=== PATIENT | female | born 1990 | race Caucasian/White ===

== ENCOUNTER 2019-12-05 18:51 | Emergency (ER) | payer MEDICAID ==
--- NOTE | 2019-12-05 20:18 | ER Document Report ---
ED Medical Screen (RME) - General Chief Complaint: Arm Pain Stated Complaint: LEFT ARM PAIN,CHEST PAIN,HEADACHE Time Seen by Provider: 12/05/19 20:09 Notes: HPI: 29-year-old female who is otherwise healthy presenting for 2 primary complaints. Patient states 3 days ago she developed an intermittent sharp chest discomfort in the left chest, occasional shortness of breath occasional radiation into the left arm and shoulder region. No change with exertional activities no history of similar discomfort. No fever cough or recent illness. Patient is on Depo-Provera. Patient also complaining of 2 days of an intermittent left sided headache. Patient states the left side of her face feels "heavy" and that she occasionally has some blurred vision in the left eye. No speech difficulty. No visual loss. No weakness numbness or tingling in the left arm or left leg. No gait difficulty I have greeted and performed a rapid initial assessment of this patient. A comprehensive ED assessment and evaluation of the patient, analysis of test results and completion of the medical decision making process will be conducted by additional ED providers PHYSICAL EXAMINATION: GENERAL: Well-appearing, well-nourished and in no acute distress. HEAD: Atraumatic, normocephalic. EYES: sclera anicteric, conjunctiva are normal. ENT: Moist mucous membranes. NECK: Normal range of motion LUNGS: Normal work of breathing, clear to auscultation HEART: 2+ radial pulses bilaterally, regular rate and rhythm ABD: limited by positioning for exam in triage. EXTREMITIES: no pitting or edema. No cyanosis. NEUROLOGICAL: No focal neurological deficits. Moves all extremities spontaneously and on command. No facial droop, speech is clear. Motor and sensory exam facial equal bilaterally. VAN negative. Strength equal 5/5 bilateral upper and lower extremities sensation intact and equal bilateral upper and lower extremities PSYCH: Normal mood, normal affect. SKIN: Warm, Dry, normal turgor, no rashes or lesions noted. TRAVEL OUTSIDE OF THE [place] IN LAST 30 DAYS: No - Related Data Allergies/Adverse Reactions: No Known Allergies Allergy (Unverified 12/05/19 20:08) Past Medical History - Social History Frequency of alcohol use: Occasional Drug Abuse: None Physical Exam - Vital signs Vitals: Temp Pulse Resp BP Pulse Ox 98.3 F 76 18 116/77 97 12/05/19 19:23 12/05/19 19:23 12/05/19 19:23 12/05/19 19:23 12/05/19 19:23 Course - Vital Signs Vital signs: Temp Pulse Resp BP Pulse Ox 98.3 F 76 18 116/77 97 12/05/19 19:23 12/05/19 19:23 12/05/19 19:23 12/05/19 19:23 12/05/19 19:23
--- NOTE | 2019-12-05 21:00 | RADIOLOGY REPORT (SQ) ---
EXAM DESCRIPTION: CLINICAL HISTORY: 29 years Female, chest pain COMPARISON: None. FINDINGS: Cardiomediastinal silhouette is not enlarged. Mild hyperinflation. No suspicious lung pleural bone abnormalities. IMPRESSION: Mild hyperinflation without acute findings noted.
--- NOTE | 2019-12-05 21:03 | RADIOLOGY REPORT (SQ) ---
EXAM DESCRIPTION: CT HEAD WITHOUT INTRAVENOUS CONTRAST CLINICAL HISTORY: Left-sided headache COMPARISON: None TECHNIQUE: CT of the head was performed without intravenous contrast .This exam was performed according to our departmental dose-optimization program, which includes automated exposure control, adjustment of the mA and/or KV according to the patient's size and/or use of iterative reconstruction technique. FINDINGS: There is no intracranial hemorrhage, midline shift, mass effect or acute focal infarct. There is good martínez/white matter differentiation. The ventricular system is normal. Visualized mastoid air cells without acute findings. The paranasal sinuses without significant findings.. There is no visualization of calvarial or skull base fractures. IMPRESSION: There are no acute intracranial findings.
[2019-12-05 22:24] LABS: APPEARANCE,URINE CLEAR; BILIRUBIN,URINE NEGATIVE (NEGATIVE); COLOR,URINE STRAW; GLUCOSE, URINE NEGATIVE (NEGATIVE); KETONES,URINE NEGATIVE (NEGATIVE); LEUKOCYTE ESTERASE,URINE NEGATIVE (NEGATIVE); NITRITE,URINE NEGATIVE (NEGATIVE); PROTEIN,URINE NEGATIVE (NEGATIVE); URINE SPECIFIC GRAVITY 1.008; UROBILINOGEN,URINE NEGATIVE mg/dL (<2.0)
[2019-12-06 00:02] LABS: ABSOLUTE EOSINOPHILS # (AUTO) 0.3 10^3/uL (0.0-0.6); ABSOLUTE LYMPHOCYTES (AUTO) 2.4 10^3/uL (0.5-4.7); ABSOLUTE MONOCYTES (AUTO) 0.5 10^3/uL (0.1-1.4); ABSOLUTE NEUT (AUTO) 4.3 10^3/uL (1.7-8.2); BASOPHILS % (AUTO) 0.4 % (0-2); EOSINOPHILS % (AUTO) 4.3 % (0-6); HEMATOCRIT 43.5 % (36.0-47.0); HEMOGLOBIN 14.9 g/dL (12.0-15.5); MEAN CORPUSCULAR HEMOGLOBIN 29.2 pg (27.0-33.4); MEAN CORPUSCULAR HGB CONC 34.2 g/dL (32.0-36.0); MEAN CORPUSCULAR VOLUME 86 fl (80-97); MONOCYTES % (AUTO) 6.6 % (3-13); PLATELET COUNT 274 10^3/uL (150-450); RED BLOOD COUNT 5.08 10^6/uL (3.72-5.28); RED CELL DISTRIBUTION WIDTH 13.2 % (11.5-14.0); SEGMENTED NEUTROPHILS % (AUTO) 56.7 % (42-78); TOTAL CELLS COUNTED % (AUTO) 100 %; WHITE BLOOD COUNT 7.5 10^3/uL (4.0-10.5)
[2019-12-06 00:15] LABS: ALBUMIN 4.5 g/dL (3.5-5.0); ALKALINE PHOSPHATASE 50 U/L (38-126); ANION GAP 8 (5-19); ASPARTATE AMINO TRANSFERASE 32 U/L (14-36); BILIRUBIN,DIRECT 0.2 mg/dL (0.0-0.4); BILIRUBIN,TOTAL 0.5 mg/dL (0.2-1.3); BLOOD UREA NITROGEN 13 mg/dL (7-20); CALCIUM 9.4 mg/dL (8.4-10.2); CARBON DIOXIDE 27 mmol/L (22-30); CHLORIDE 104 mmol/L (98-107); GLUCOSE 75 mg/dL (75-110); TOTAL PROTEIN 7.7 g/dL (6.3-8.2)
[2019-12-06] MEDS ORDERED: ACETAMINOPHEN 325 MG TABLET PO ONE (00:42)
[2019-12-06] MEDS ORDERED: DEXAMETHASONE SOD PHOS INJ 10 MG/1 ML VIAL IV ONE (01:22)
[2019-12-06] MEDS ORDERED: KETOROLAC TROMETHAMINE INJ/PF 30 MG/1 ML SDV IV ONE (01:22)
[2019-12-06] MEDS ORDERED: DIPHENHYDRAMINE HCL 50 MG/ML VIAL IV ONE (01:23)
[2019-12-06] MEDS ORDERED: METOCLOPRAMIDE HCL INJ/PF 10 MG/2 ML SDV IV ONE (01:23)
--- NOTE | 2019-12-06 01:56 | ER Document Report ---
ED General - General Chief Complaint: Arm Pain Stated Complaint: LEFT ARM PAIN,CHEST PAIN,HEADACHE Time Seen by Provider: 12/05/19 20:09 Notes: Patient is a 29-year-old female that comes emergency department with complaints of left upper back pain, left shoulder pain, pain in the left upper chest and into the left arm. She states that this started about 3 days ago. For the past 2 days she has also had intermittent headaches, pain is mostly in the back of the head and wrapping around towards the forehead. She states occasionally the side of her face feels heavy and the vision in the left eye has been occasionally blurred when she has a worse headache. She denies visual loss, numbness or weakness in the left side of her body or limbs, head injury, injury otherwise, fever/chills, nausea/vomiting. She denies history of the same. She denies any diagnosed medical history or medications other than Depo-Provera. She denies smoking, recreational drugs, or frequent alcohol. TRAVEL OUTSIDE OF THE [place] IN LAST 30 DAYS: No - Related Data Allergies/Adverse Reactions: No Known Allergies Allergy (Unverified 12/05/19 20:08) Past Medical History - General Information source: Patient - Social History Smoking Status: Never Smoker Frequency of alcohol use: Occasional Drug Abuse: None Lives with: Family Family History: Reviewed & Not Pertinent Patient has suicidal ideation: No Patient has homicidal ideation: No Surgical Hx: Negative - Immunizations Immunizations up to date: Yes Hx Diphtheria, Pertussis, Tetanus Vaccination: Yes Review of Systems - Review of Systems Constitutional: No symptoms reported EENT: No symptoms reported Cardiovascular: No symptoms reported Respiratory: No symptoms reported Gastrointestinal: No symptoms reported Genitourinary: No symptoms reported Female Genitourinary: No symptoms reported Musculoskeletal: No symptoms reported Skin: No symptoms reported Hematologic/Lymphatic: No symptoms reported Neurological/Psychological: No symptoms reported Physical Exam - Vital signs Vitals: Temp Pulse Resp BP Pulse Ox 98.3 F 76 18 116/77 97 12/05/19 19:23 12/05/19 19:23 12/05/19 19:23 12/05/19 19:23 12/05/19 19:23 - Notes Notes: GENERAL: Alert, interacts well. No acute distress. Smiling and talkative. HEAD: Normocephalic, atraumatic. EYES: Pupils equal, round, and reactive to light. Extraocular movements intact. ENT: Oral mucosa moist, tongue midline. Oropharynx unremarkable. Airway patent. LUNGS: Clear to auscultation bilaterally, no wheezes, rales, or rhonchi. No respiratory distress. some mild palpation tenderness over the left upper shoulder. Full range of motion of the left shoulder. HEART: Regular rate and rhythm. No murmur ABDOMEN: Soft, non-tender. Non-distended. Bowel sounds present in all 4 quadrants. GENITOURINARY: Deferred EXTREMITIES: Moves all 4 extremities spontaneously. No edema, normal radial and dorsalis pedis pulses bilaterally. No cyanosis. BACK: Tender in the left paracervical and left trapezius muscles with rigid muscle fibers, range of motion of the neck laterally, extension, flexion is normal. No signs of trauma. No cervical, thoracic, lumbar midline tenderness. No saddle anesthesia, normal distal neurovascular exam. Moves all extremities in full range of motion. NEUROLOGICAL: Alert and oriented x3. Normal speech. Cranial nerves II through XII grossly intact. PSYCH: Normal affect, normal mood. SKIN: Warm, dry, normal turgor. No rashes or lesions noted. Course - Re-evaluation Re-evalutation: Patient with tender muscles over the left paracervical and left trapezius muscles. She also has some tenderness over the left anterior chest. Appears to be all musculoskeletal with tension component and migraine symptoms. She states she feels much better now and she only has a mild current headache, she has not yet been medicated yet either. Normal neurological exam, smiling and well- appearing. I did review work-up from triage. EKG sinus rhythm, no ischemic changes, unremarkable axis, unremarkable QTC. Chest x-ray negative. Troponin negative. CBC, chemistry, remaining work-up unremarkable. Overall evaluation is most consistent with musculoskeletal tenderness, tension headache, probable migraine. I did review CT of the head as well and this was normal. Discussed with patient at length. She is very happy with this. Discussed treatment for expected tension headache components, muscle spasms, discussed follow-up and return precautions. Patient states appreciation and agreement. Stable at time of discharge. - Vital Signs Vital signs: Temp Pulse Resp BP Pulse Ox 98.4 F 73 18 95/57 L 98 12/06/19 02:14 12/06/19 02:14 12/06/19 02:14 12/06/19 02:14 12/06/19 02:14 - Laboratory Result Diagrams: 12/05/19 23:50 12/05/19 23:50 Laboratory results interpreted by me: 12/05/19 12/05/19 21:56 23:50 Creatinine 0.49 L Urine Blood MODERATE H Discharge - Discharge Clinical Impression: Upper back pain Headache Qualifiers: Headache type: unspecified Headache chronicity pattern: acute headache Intr actability: not intractable Qualified Code(s): R51 - Headache Chest pain Qualifiers: Chest pain type: unspecified Qualified Code(s): R07.9 - Chest pain, unspecified Condition: Stable Disposition: HOME, SELF-CARE Additional Instructions: Your CT of the head, chest x-ray, EKG, and work-up did not show any concerning findings. Your evaluation shows pain and tightness of the left trapezius muscle and paracervical muscles, your evaluation is most consistent with muscle spasm contributing to tension headaches which have caused migraine-like symptoms. I suspect your chest pain is also musculoskeletal. I recommend the muscle x-ray as prescribed, heat to the area, massage, [id number] anti-inflammatories, and the prescribed Fioricet if needed for headaches. Symptoms should simply resolve with time. Follow-up with primary care for additional management especially of headaches. Return if you worsen including severe worsening pain, difficulty breathing, fever, vomiting, or any other concerning symptoms. Prescriptions: Butalb/Acetaminophen/Caffeine [Fioricet (50-325-40 mg) Tablet] 1 tab PO Q4HP PRN #20 tab PRN Reason: Methocarbamol [Robaxin 500 mg Tablet] 500 mg PO QID PRN #20 tablet PRN Reason:
[2019-12-06 02:15] VITALS: BP 95/57
--- NOTE | 2019-12-06 18:22 | EKG REPORT ---
SEVERITY:- NORMAL ECG - SINUS RHYTHM : Confirmed by: Gail Phillip MD 06-Dec-2019 18:21:59
== END 2019-12-06 02:15 | disposition home or self-care (01) ==
LOC: ER 18:51
DX: M54.6 Pain in thoracic spine (principal); R51 Headache; R07.9 Chest pain, unspecified; M79.602 Pain in left arm; M25.512 Pain in left shoulder
CPT/HCPCS: 93005; 99284; 96374; 96375; 36415; 85025; 81025; 80053; 81001; 84484; 71046; 70450; 93010; J1200; J1885; J2765; J1100